=== PATIENT | female | born 1985 | race Caucasian/White ===

== ENCOUNTER 2024-02-23 08:55 | Outpatient (CLI) | payer OTHER | END 2024-02-23 09:41 | disposition home or self-care (01) | LOC: NST 08:55 | PROVIDERS: ATTEND Obstetrics & Gynecology | DX: Z34.83 Encounter for supervision of other normal pregnancy, third trimester (principal) ==

== ENCOUNTER 2024-05-17 09:30 | Inpatient (IN) | payer OTHER ==
[~2024-05-17] VITALS: Ht 154.9 cm; Wt 3.2 kg
[2024-05-17] MEDS ORDERED: PRENATAL TABLE1 EAC1 PO (11:56)
[2024-05-17] MEDS ORDERED: IRON (11:57)
[2024-05-17 12:09] LABS: HEMATOCRIT 34.2 % (36.0-45.00); HEMOGLOBIN 11.3 g/dL (12.0-15.00); MEAN CELL VOLUME 85.4 fL (80.00-100.00); MEAN CORPUSCULAR HEMOGLOBIN 28.1 pg (27.00-32.0); MEAN CORPUSCULAR HGB CONC 32.9 g/dl (32.0-36.0); PLATELET COUNT 303 K/uL (150-450); RED CELL DISTRIBUTION WIDTH 18.8 % (11.5-14.5)
[2024-05-17 12:10] LABS: URINE APPEARANCE Clear; URINE BILIRRUBIN Negative (NEGATIVE); URINE BLOOD Negative; URINE COLOR Yellow; URINE GLUCOSE Negative (NEGATIVE); URINE KETONE Negative (NEGATIVE); URINE LEUKOCYTE Negative; URINE NITRATE Negative; URINE PROTEIN Negative (NEGATIVE); URINE UROBILINOGEN 0.2 E.U./dl
[2024-05-17 12:11] LABS: URINE BACTERIA 177.3 uL (0.0-1933); URINE EPITHELIAL CELLS 7.7 uL (0.0-38.8); URINE WBC 4.2 uL (0.0-23.2)
[2024-05-17 12:13] LABS: URINE RBC 1.9 uL (0.0-20.8)
[2024-05-17 12:52] LABS: INR < 0.93; PROTHROMBIN TIME 10.1 SECONDS (9.0-11.5)
[2024-05-17 13:36] LABS: ALBUMIN 2.9 gm/dL (3.4-5.0); BILIRUBIN TOTAL 0.2 mg/dL (0.3-1.2); CALCIUM 8.9 mg/dL (8.5-10.1); CREATININE SERUM 0.5 mg/dL (0.55-1.02); GFR 139.6; GLOBULINA 3.1 G/DL (2.4-3.5); POTASSIUM 4.14 mEq/L (3.5-5.1)
[2024-05-24] MEDS ORDERED: OXYTOCIN 10 UNITS/ML VIAL ONE ×3 (06:58→12:43)
[2024-05-24] MEDS ORDERED: CITRIC ACID/SODIUM CITRATE 30 ML BLIST.PACK PO SCH (07:00)
[2024-05-24] MEDS ORDERED: RINGERS SOLUTION,LACTATED 1,000 ML IV SCH (07:00)
[2024-05-24] MEDS ORDERED: CEFAZOLIN SODIUM 1,000 MG VIAL IV SCH (07:00)
[2024-05-24 07:01] VITALS: BP 104/69; O2SAT 99
[2024-05-24] MEDS ORDERED: PEPCID AC20 MG PO (07:09)
[2024-05-24 07:10] VITALS: BP 104/69
[2024-05-24] MEDS ORDERED: OXYTOCIN 1,000 ML IV ONE (09:45)
[2024-05-24] MEDS ORDERED: KETOROLAC TROMETHAMINE 30 MG VIAL IV SCH (12:00)
[2024-05-24] MEDS ORDERED: MORPHINE SULFATE 4 MG/ML VIAL IV ONE ×2 (12:30→13:30)
[2024-05-24] MEDS ORDERED: KETOROLAC TROMETHAMINE 30 MG VIAL ONE (12:43)
[2024-05-24] MEDS ORDERED: MORPHINE SULFATE 4 MG/ML CARTRIDGE IV SCH (13:00)
[2024-05-24 13:54] VITALS: BP 109/69
[2024-05-24 15:58] VITALS: BP 133/72
[2024-05-25 01:13] VITALS: BP 90/60
[2024-05-25] MEDS ORDERED: ACETAMINOPHEN 500 MG GEL..CAP PO SCH (06:00)
[2024-05-25 07:55] VITALS: BP 103/63
[2024-05-25] MEDS ORDERED: DOCUSATE SODIUM 100MG CAP PO SCH (09:00)
[2024-05-25] MEDS ORDERED: PNV,CALCIUM 72/IRON/FOLIC ACID 1 TAB TABLET PO SCH (09:00)
[2024-05-25] MEDS ORDERED: GABAPENTIN 300 MG CAPSULE PO SCH (09:00)
[2024-05-25] MEDS ORDERED: SIMETHICONE 125 MG CAPSULE PO SCH (09:00)
[2024-05-25 09:02] LABS: HEMATOCRIT 32.4 % (36.0-45.00); HEMOGLOBIN 10.6 g/dL (12.0-15.00); MEAN CELL VOLUME 86.1 fL (80.00-100.00); MEAN CORPUSCULAR HEMOGLOBIN 28.2 pg (27.00-32.0); MEAN CORPUSCULAR HGB CONC 32.7 g/dl (32.0-36.0); PLATELET COUNT 241 K/uL (150-450); RED BLOOD COUNT 3.76 M/uL (4.00-6.00); RED CELL DISTRIBUTION WIDTH 20.6 % (11.5-14.5)
[2024-05-25] MEDS ORDERED: IBUprofen 600 MG TABLET PO SCH (12:00)
[2024-05-25] MEDS ORDERED: KETOROLAC TROMETHAMINE 10 MG TABLET PO SCH (12:00)
[2024-05-25] MEDS ORDERED: OxyCODONE HCL/APAP UD (PERCOCET) PO SCH (13:00)
[2024-05-25 16:00] VITALS: BP 91/61
[2024-05-25 20:00] VITALS: BP 99/64
[2024-05-25] MEDS ORDERED: OXYTOCIN 10 UNITS/ML VIAL IV ONE (20:30)
[2024-05-25] MEDS ORDERED: ERYTHROMYCIN BASE OPHT 1GM EACH TUBE OP ONE (20:30)
[2024-05-26 00:17] VITALS: BP 105/65
[2024-05-26 04:00] VITALS: BP 106/71
[2024-05-26 08:26] VITALS: BP 114/71
[2024-05-26 16:30] VITALS: BP 102/63; O2SAT 100
[2024-05-26 20:36] VITALS: BP 107/59; O2SAT 98
[2024-05-26 23:52] VITALS: BP 96/60
== END 2024-05-27 14:12 | disposition home or self-care (01) | DRG 785 ==
LOC: LDR 05-24 06:25 → OB/GYN 05-24 07:00 → LDR 05-24 10:34 → OB/GYN 05-24 13:08
PROVIDERS: Obstetrics & Gynecology Gynecology; ADMIT Obstetrics & Gynecology; ATTEND Obstetrics & Gynecology
PROC: 0UB70ZZ Excision of Bilateral Fallopian Tubes, Open Approach (ICD-10-PCS; 2024-05-24)
PROC: 4A1HXCZ Monitoring of Products of Conception, Cardiac Rate, External Approach (ICD-10-PCS; 2024-05-24)
PROC: 10D00Z1 Extraction of Products of Conception, Low, Open Approach (ICD-10-PCS; principal; 2024-05-24 07:00)
DX: O34.211 Maternal care for low transverse scar from previous cesarean delivery (principal); Z30.2 Encounter for sterilization; Z3A.39 39 weeks gestation of pregnancy; Z37.0 Single live birth